=== PATIENT | female | born 1980 | race Caucasian/White ===

== ENCOUNTER 2020-05-22 17:37 | Emergency (ER) | payer OTHER, SELFPAY ==
[2020-05-22 17:39] VITALS: BP 122/92; PULSE 100; RESP 18; TEMP 36.7; O2SAT 100; BMI 21.0
--- NOTE | 2020-05-22 17:50 | US_ITS ---
STUDY: FIRST TRIMESTER OBSTETRICAL ULTRASOUND REASON FOR EXAM: Female, 40 years old. . Leading. LMP: 04/01/20 TECHNIQUE: Transvaginal PRIOR ULTRASOUND: None. FINDINGS: There is an intrauterine gestational sac, yolk sac and pole identified. There is a live intrauterine gestation with a heart rate of 134 bpm. The crown-rump length measures 3.6 mm which corresponds to 6 weeks and 1 day. The mean sac diameter corresponds to 6 weeks and 1 day. The sonographic age is 6 weeks and 1 day. The estimated delivery date is 01/14/21. There is a 2.9 x 1.6 x 1.3 cm subchorionic bleed. The uterus measures 8.1 x 6.5 x 4.8 cm. There is no demonstrated uterine fibroid. The cervix is closed. The right ovary measures 3.6 x 3.0 x 1.9 cm. There is no right ovarian cyst. There is no visualized right adnexal mass or complex lesion. The left ovary measures 4.3 x 3.0 x 2.5 cm. There is a 1.8 x 1.8 cm cyst in the left ovary which likely represents a corpus luteum. There is no visualized left adnexal mass or complex lesion. There is a moderate amount of free fluid. US/Transvaginal w/Preg US IMPRESSION: Single live intrauterine gestation at approximately 6 weeks and 1 day. 2.9 x 1.6 x 1.3 cm subchorionic hemorrhage. Moderate amount of free fluid. Electronically Signed: Jossue Boudreaux MD at 20:06 EST Tel , Service support ,
--- NOTE | 2020-05-22 17:52 | ED.DCSUM_ITS ---
- ER Visit Summary Date of Service: 05/22/20 Chief Complaint: Vaginal bleeding in History of Present Illness: The patient is a 40 F presenting with vaginal bleeding in . Patient states she had a positive home test on April 29. This was 4 weeks from her previous period. She is G6, P4 Ab1. She states on Saturday she started having bleeding and noticed a blood clot. She states the bleeding has slowed down and she continues to have spotting. She has not had an ultrasound during this . She complains of nausea and low back pain. Denies other complaints. Physical Examination: Vitals are stable. Patient is afebrile. Alert no acute distress. HEENT exam is unremarkable. Neck is supple. Lungs are clear and equal bilaterally. Heart is regular rate and rhythm. Abdomen is soft nontender nondistended. No guarding or rebound Extremities are unremarkable. Skin is warm and dry. Remainder of exam is unremarkable. Emergency Department Course and Treatment: [place] [id number]. Blood type O positive. Pelvic ultrasound shows single live intrauterine gestation at approximately 6 weeks and 1 day. 2.9 x 1.6 x 1.3 cm subchorionic hemorrhage. Moderate amount of free fluid. Discussed with Dr. Madsen. Patient will follow-up in the office. Patient is resting comfortably on reevaluation. Advised return to ED for worsening complaints. Disposition: Discharge home Impression: Threatened miscarriage This note was generated with [employer] dictation software. It may contain incorrect words, spelling, and punctuation that were not noted in review of the chart prior to signing ED Disposition - Plan for ED Patient: Instructions: Care for a Healthy Baby Referrals: Daren Wood DO [Primary Care Provider] - Christiane Madsen MD [STAFF PHYSICIAN] -
[2020-05-22 20:16] VITALS: BP 113/79; PULSE 70; RESP 16; O2SAT 100
--- NOTE | 2020-05-22 20:25 | ED.DEP ---
ED Disposition - Plan for ED Patient: Instructions: Care for a Healthy Baby Referrals: Daren Wood DO [Primary Care Provider] - Christiane Doe MD [STAFF PHYSICIAN] -
== END 2020-05-22 20:45 | disposition home or self-care (01) ==
LOC: ED 18:31
PROVIDERS: Emergency Provider Emergency Medicine; PCP Family Medicine
DX: O20.0 Threatened abortion (principal); O09.521 Supervision of elderly multigravida, first trimester; Z3A.01 Less than 8 weeks gestation of pregnancy
CPT/HCPCS: 76817; 84702; 86900; 86901; 99283; A4216